=== PATIENT | female | born 1990 | race Caucasian/White ===

== ENCOUNTER 2024-01-04 20:05 | Emergency (ER) | payer BC ==
[2024-01-04 20:10] VITALS: RESP 18
--- NOTE | 2024-01-04 20:21 | ED ---
Lower Extremity Injury HPI - General Chief Complaint: Extremity Injury, Lower Stated Complaint: fall, L leg injury Time Seen by Provider: 01/04/24 20:11 Source: patient Mode of arrival: ambulatory Limitations: no limitations - History of Present Illness Initial Comments: This patient is a 33-year-old woman who presents to have evaluation of left knee injury. The patient [place], slipped and fell landing on her left knee. She states that since that time anytime she attempts to flex the knee or stand on the knee she has significant pain. She states that she did hear a popping sound when she fell. She denies history of previous leg injury or surgery. MD Complaint: knee injury -: hour(s) Injury: Knee: Left Place: street/outdoors Severity: severe Improves With: nothing Worsens With: weight bearing, movement Context: fall Associated Symptoms: snap/pop sensation, unable to bear weight - Related Data Allergies Allergy/AdvReac Type Severity Reaction Status Date / Time Penicillins Allergy Unknown Verified 01/04/24 20:09 Childhood Review of Systems ROS Statement: Those systems with pertinent positive or pertinent negative responses have been documented in the HPI. ROS Other: All systems not noted in ROS Statement are negative. Constitutional: Denies: fever, chills Musculoskeletal: Reports: as per HPI, arthralgia. Denies: back pain Skin: Denies: rash Past Medical History Additional Past Medical History / Comment(s): Chrons History of Any Multi-Drug Resistant Organisms: None Reported Past Surgical History: No Surgical Hx Reported Past Psychological History: No Psychological Hx Reported Smoking Status: Never smoker Past Alcohol Use History: Rare Past Drug Use History: None Reported General Exam Limitations: no limitations General appearance: alert, in no apparent distress Head exam: Present: atraumatic, normocephalic Eye exam: Present: normal appearance Extremities exam: Present: normal inspection, full ROM, tenderness, normal capillary refill Skin exam: Present: warm, dry, intact, normal color. Absent: rash Course Vital Signs 01/04/24 01/04/24 20:07 22:32 Temperature 98.5 F 98.3 F Pulse Rate 91 89 Respiratory 18 18 Rate Blood Pressure 161/89 120/61 O2 Sat by Pulse 100 95 Oximetry Medical Decision Making - Medical Decision Making The patient had x-ray of the left femur which was negative for acute fracture or subluxation Was pt. sent in by a medical professional or institution (ELISSA Valdes, VI[employer]ENT CRIMES DETECTIVE, urgent care, hospital, or detention...) When possible be specific @ -[No] Did you speak to anyone other than the patient for history (EMS, parent, family, police, friend...)? What history was obtained from this source @ -[No] Did you review nursing and triage notes (agree or disagree)? Why? @ -[I reviewed and agree with nursing and triage notes] Were old charts reviewed (outside hosp., previous admission, EMS record, old EKG, old radiological studies, urgent care reports/EKG's, detention records)? Report findings @ -[No old charts were reviewed] Differential Diagnosis (chest pain, altered mental status, abdominal pain women, abdominal pain men, vaginal bleeding, weakness, fever, dyspnea, syncope, headache, dizziness, GI bleed, back pain, seizure, CVA, palpatations, mental health, musculoskeletal)? @ -[Differential Musculoskeletal Muscular strain, contusion, ligament sprain, fracture, arthritis, septic arthritis, bursitis, cellulitis, muscle spasm, nerve compression, DVT, arterial occlusion, herpes zoster, electrolyte abnormality, tumor.... This is not meant to be in all inclusive list EKG interpreted by me (3pts min.). @ -[As above] X-rays interpreted by me (1pt min.). @ -[Interpreted as above CT interpreted by me (1pt min.). @ -[None done] U/S interpreted by me (1pt. min.). @ -[None done] What testing was considered but not performed or refused? (CT, X-rays, U/S, labs)? Why? @ -[None] What meds were considered but not given or refused? Why? @ -[None] Did you discuss the management of the patient with other professionals (professionals i.e. ELISSA Valdes, VI[employer]ENT [employer]IMES DETECTIVE, lab, RT, psych nurse, social problems specialist, sill worker, teacher, training and development officer, home health care case manager)? Give summary @ -[No] Was smoking cessation discussed for >3mins.? @ -[No] Was critical care preformed (if so, how long)? @ -[No] Were there social determinants of health that impacted care today? How? (Homelessness, low income, unemployed, alcoholism, drug addiction, transportation, low edu. Level, literacy, decrease access to med. care, [place] [facility], rehab)? @ -[No] Was there de-escalation of care discussed even if they declined (Discuss DNR or withdrawal of care, Hospice)? DNR status @ -[No] What co-morbidities impacted this encounter? (DM, HTN, Smoking, COPD, CAD, Cancer, CVA, ARF, Chemo, Hep., AIDS, mental health diagnosis, sleep apnea, morbid obesity)? @ -[None] Was patient admitted / discharged? Hospital course, mention meds given and route, prescriptions, significant lab abnormalities, going to OR and other pertinent info. @ -[hospital course] Undiagnosed new problem with uncertain prognosis? @ -[No] Drug Therapy requiring intensive monitoring for toxicity (Heparin, Nitro, Insulin, Cardizem)? @ -[No] Were any procedures done? @ -[No] Diagnosis/symptom? @ -[Acute knee sprain Acute, or Chronic, or Acute on Chronic? @ -[Acute Uncomplicated (without systemic symptoms) or Complicated (systemic symptoms)? @ -[Uncomplicated Side effects of treatment? @ -[No] Exacerbation, Progression, or Severe Exacerbation? @ -[No] Poses a threat to life or bodily function? How? (Chest pain, [place], [place], pneumonia, PE, COPD, DKA, ARF, appy, cholecystitis, CVA, Diverticulitis, Homicidal, Suicidal, threat to staff... and all critical care pts) @ -[No] Disposition Clinical Impression: Knee sprain Disposition: HOME SELF-CARE Condition: Good Instructions (If sedation given, give patient instructions): Knee Sprain (ED) Is patient prescribed a controlled substance at d/c from ED?: No Referrals: Halle Desai MD [Primary Care Provider] - 1-2 days Chris Rocha MD [Medical Doctor] - 1-2 days
[2024-01-04] MEDS: HYDROcodone/APAP 5-325MG 1 EACH TAB PO STA (20:33)
[2024-01-04] MEDS: IBUPROFEN 400 MG TAB PO STA (20:34)
--- NOTE | 2024-01-04 21:28 | XR ---
EXAMINATION TYPE: XR femur LT DATE OF EXAM: 01/04/2024 8:58 PM CLINICAL INDICATION:Female, 33 years old with history of fall injury; [facility] COMPARISON: TECHNIQUE: The left femur was examined in Frontal and lateral projections. FINDINGS: Osseous mineralization appears appropriate. No focal bony lesion is observed. No evidence o f acute fracture, joint dislocation, or soft tissue swelling . No radiopaque foreign body is seen. IMPRESSION: No acute osseous abnormality.
[2024-01-04 22:34] VITALS: BP 120/61; PULSE 89; TEMP 98.3
== END 2024-01-04 22:32 | disposition home or self-care (01) ==
LOC: EC 20:05
DX: S83.92XA Sprain of unspecified site of left knee, initial encounter (principal); Z88.0 Allergy status to penicillin; W01.0XXA Fall on same level from slipping, tripping and stumbling without subsequent striking against object, initial encounter
CPT/HCPCS: 73552; 99283; L1830